=== PATIENT | male | born 1955 | race Caucasian/White ===

== ENCOUNTER 2017-12-01 10:52 | Emergency (ER) | payer OTHER ==
[2017-12-01] MEDS ORDERED: Lactated Ringers 1,000 ML IV ONE (12:29)
[2017-12-01] MEDS ORDERED: HYDROmorphone 1 MG/ML Syringe IVPUSH ONE (12:30)
[2017-12-01] MEDS ORDERED: Metoclopramide 10 MG/2 ML SDV IVPUSH ONE (12:30)
--- NOTE | 2017-12-01 12:34 | EDM.PDOC ---
ED HPI GENERAL MEDICAL PROBLEM - General Chief Complaint: Abdominal Pain Stated Complaint: RIGHT SIDE ABD AND BACK PAIN Time Seen by Provider: 12/01/17 12:20 Source of Information: Reports: Patient, RN History Limitations: Reports: No Limitations - History of Present Illness INITIAL COMMENTS - FREE TEXT/NARRATIVE: 62 yo male here with RLQ abdominal pain that began a couple days ago and was intially associated with diarrhea. Attributed this to amoxicillin he was given for a dental infection so he stopped the med and his sx's actually worsened. Now has continuous RLQ pain and the diarrhea has stopped. Has never had abdominal surgery. Has intermittent nausea without vomiting. No fever. Coughing increases his pain. Is from CT. Does have a hx of abdominal hernias, RLQ and umbilical. Onset: Gradual Onset Date: 11/29/17 Duration: Day(s):, Getting Worse Location: Reports: Abdomen Quality: Reports: Ache, Pressure Severity: Moderate Improves with: Reports: Rest Worsens with: Reports: Movement Context: Reports: Other (still has his appendix) Associated Symptoms: Reports: Nausea/Vomiting (no vomiting). 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: Other (see below) (none) rlq abdomen Pain Score (Numeric/FACES): 5 - Related Data Allergies Allergy/AdvReac Type Severity Reaction Status Date / Time No Known Allergies Allergy Verified 12/01/17 11:51 Home Meds: Home Meds Aspirin 81 mg PO DAILY 12/01/17 [History] Cholecalciferol (Vitamin D3) [Children's Vitamin D3] 1,000 unit PO DAILY [History] atorvaSTATin [Lipitor] 40 mg PO BEDTIME 12/01/17 [History] metFORMIN [Glucophage XR] 1,000 mg PO BIDMEALS 12/01/17 [History] Past Medical History Cardiovascular History: Reports: Heart Murmur, High Cholesterol Endocrine/Metabolic History: Reports: Diabetes, Type II - Past Surgical History Musculoskeletal Surgical History: Reports: Carpal Tunnel, Hip Replacement, Knee Replacement Social & Family History - Tobacco Use Smoking Status *Q: Never Smoker - Recreational Drug Use Recreational Drug Use: No ED ROS GENERAL - Review of Systems Review Of Systems: See Below Constitutional: Reports: No Symptoms HEENT: Reports: No Symptoms Respiratory: Reports: No Symptoms Cardiovascular: Reports: No Symptoms Endocrine: Reports: No Symptoms GI/Abdominal: Reports: Abdominal Pain, Nausea. Denies: Black Stool, Bloody Stool, Constipation, Vomiting : Reports: No Symptoms Musculoskeletal: Reports: No Symptoms Skin: Reports: No Symptoms Neurological: Reports: No Symptoms ED EXAM, GI/ABD - Physical Exam Exam: See Below Exam Limited By: No Limitations General Appearance: Alert, WD/WN, Mild Distress Eyes: Bilateral: Normal Appearance Ears: Normal External Exam, Normal Canal, Hearing Grossly Normal Nose: Normal Inspection, Normal Mucosa, No Blood Throat/Mouth: Normal Inspection, Normal Lips, Normal Oropharynx, Normal Voice, No Airway Compromise Head: Atraumatic, Normocephalic Neck: Normal Inspection Respiratory/Chest: No Respiratory Distress, Lungs Clear, Normal Breath Sounds, No Accessory Muscle Use Cardiovascular: Regular Rate, Rhythm, No Edema GI/Abdominal Exam: No Distention, Guarding (RLQ), Tender, Abnormal Bowel Sounds (decreased) Back Exam: Normal Inspection Extremities: Normal Inspection, Normal Range of Motion, Non-Tender, No Pedal Edema Neurological: Alert, Oriented, CN II-XII Intact, Normal Cognition, No Motor/ Sensory Deficits Psychiatric: Normal Affect, Normal Mood Skin Exam: Warm, Dry, Intact, Normal Color, No Rash Lymphatic: No Adenopathy Course - Vital Signs Text/Narrative:: Pain now gone, feels back to normal. Will ambulate and feed and see how he does with this. After eating and walking pain is minimally still present. Last Recorded V/S: Last Vital Signs Temp 36.1 C 12/01/17 11:53 Pulse 56 L 12/01/17 13:00 Resp 12 12/01/17 13:00 BP 127/62 12/01/17 13:00 Pulse Ox 100 12/01/17 13:00 - Orders/Labs/Meds Orders: Active Orders 24 hr Category Date Time Status UA W/MICROSCOPIC [URIN] Stat Lab 12/01/17 12:26 Ordered Iopamidol [Isovue-300 (61%)] Med 12/01/17 12:52 Active 100 ml IV . DIRECTED PRN Sodium Chloride 0.9% [Normal Saline] 77 ml Med 12/01/17 13:00 Active IV ASDIRECTED Medication Orders Sodium Chloride (Normal Saline) 77 mls @ 3.3 mls/sec IV ASDIRECTED TONYA Last Admin: 12/01/17 13:08 Dose: 3.3 mls/sec Iopamidol (Isovue-300 (61%)) 100 ml IV . DIRECTED PRN PRN Reason: RADIOLOGY EXAM Stop: 12/02/17 12:53 Last Admin: 12/01/17 13:08 Dose: 100 ml Labs: Laboratory Tests 12/01/17 12/01/17 12/01/17 Range/Units 12:26 12:30 12:30 WBC 9.4 (4.5-11.0) K/uL RBC 5.03 (4.30-5.90) M/uL Hgb 15.0 (12.0-15.0) g/dL Hct 45.0 (40.0-54.0) % MCV 90 (80-98) fL MCH 30 (27-31) pg MCHC 33 (32-36) % Plt Count 355 (150-400) K/uL Sodium 136 L (140-148) mmol/L Potassium 3.8 (3.6-5.2) mmol/L Chloride 100 (100-108) mmol/L Carbon Dioxide 26 (21-32) mmol/L Anion Gap 13.8 (5.0-14.0) mmol/L BUN 15 (7-18) mg/dL Creatinine 0.9 (0.8-1.3) mg/dL Est Cr Clr Drug Dosing 87.37 mL/min Estimated GFR (MDRD) > 60 (>60) Glucose 118 H (74-106) mg/dL Calcium 9.3 (8.5-10.1) mg/dL C-Reactive Protein 0.14 (0.0-0.3) mg/dL Urine Color Yellow Urine Appearance Slightly cloudy Urine pH 6.0 (4.5-8.0) Ur Specific [place] 1.015 (1.008-1.030) Urine Protein Trace (NEGATIVE) mg/dL Urine Glucose (UA) Normal (NEGATIVE) mg/dL Urine Ketones Negative (NEGATIVE) mg/dL Urine Occult Blood Negative (NEGATIVE) Urine Nitrite Negative (NEGAITVE) Urine Bilirubin Small (NEGATIVE) Urine Urobilinogen 1 (NORMAL) mg/dL Ur Leukocyte Esterase Negative (NEGATIVE) Urine RBC 0-5 (0-5) Urine WBC Not seen (0-5) Ur Epithelial Cells Not seen Amorphous Sediment Many Urine Bacteria Not seen Urine Mucus Not seen Meds: Medications Generic Name Dose Route Start Last Admin Trade Name Sharon PRN Reason Stop Dose Admin Sodium Chloride 77 mls @ 3.3 mls/sec 12/01/17 13:00 12/01/17 13:08 Normal Saline IV 3.3 mls/sec ASDIRECTED TONYA Administration Iopamidol 100 ml 12/01/17 12:52 12/01/17 13:08 Isovue-300 (61%) IV 12/02/17 12:53 100 ml . DIRECTED PRN Administration RADIOLOGY EXAM Discontinued Medications Generic Name Dose Route Start Last Admin Trade Name Sharon PRN Reason Stop Dose Admin Hydromorphone HCl 1 mg 12/01/17 12:30 12/01/17 12:50 Dilaudid IVPUSH 12/01/17 12:31 1 mg ONETIME ONE Administration Lactated Ringer's 1,000 mls @ 1,000 mls/hr 12/01/17 12:29 12/01/17 13:32 Ringers, Lactated IV 12/01/17 13:28 1,000 mls/hr BOLUS ONE Administration Metoclopramide HCl 10 mg 12/01/17 12:30 12/01/17 12:48 Reglan IVPUSH 12/01/17 12:31 10 mg ONETIME ONE Administration - Radiology Interpretation Free Text/Narrative:: CT abd/pelvis negative CT Results Date: 12/01/17 CT Results Time: 14:00 Departure - Departure Time of Disposition: 14:42 Disposition: Home, Self-Care 01 Condition: Fair Clinical Impression: Nonspecific abdominal pain - Discharge Information *PRESCRIPTION DRUG MONITORING PROGRAM REVIEWED*: Not Applicable *COPY OF PRESCRIPTION DRUG MONITORING REPORT IN PATIENT JOSSIE: Not Applicable Instructions: Abdominal Pain, Adult, [id number] Referrals: PCP,None [Primary Care Provider] - Forms: ED Department Discharge Additional Instructions: Acetaminophen as needed for abdominal pain. Drink ample fluids and get ample fiber in your diet, consider Miralax. F/U in the clinic for recheck soon. Return if worse. - My Orders Last 24 Hours: My Active Orders 12/01/17 12:26 UA W/MICROSCOPIC [URIN] Stat 12/01/17 12:52 Iopamidol [Isovue-300 (61%)] 100 ml IV . DIRECTED PRN 12/01/17 13:00 Sodium Chloride 0.9% [Normal Saline] 77 ml IV ASDIRECTED - Assessment/Plan Last 24 Hours: My Active Orders 12/01/17 12:26 UA W/MICROSCOPIC [URIN] Stat 12/01/17 12:52 Iopamidol [Isovue-300 (61%)] 100 ml IV . DIRECTED PRN 12/01/17 13:00 Sodium Chloride 0.9% [Normal Saline] 77 ml IV ASDIRECTED
[2017-12-01] MEDS ORDERED: Iopamidol 612 MG/ML 100 ML Bottle IV PRN (12:52)
--- NOTE | 2017-12-01 14:09 | CT ---
Abdomen Pelvis w Cont CLINICAL HISTORY: Right lower quadrant pain COMPARISON: None TECHNIQUE: Multiple contiguous axial sections were obtained from the level of the lung bases down thr ough the pelvis with the IV infusion of iodinated contrast. Oral contrast was not administered. . Aut o dosage reduction and iterative reconstruction techniques employed. FINDINGS: The lung bases are clear. The liver is free of mass or biliary dilatation. The gallbladder has a normal Contour. The spleen contains multiple granulomata. The pancreas is free of mass or inflammatory ge e. No adrenal masses are identified. The kidneys are free of mass, stones or hydronephrosis. Ureters have a normal course and contour. The abdominal pelvic fat planes and low pelvic side armendariz are well demarcated is seen. There is some moderate streak artifact the from hip prostheses. The visualized bl adder has a normal contour. The there is a small right inguinal hernia containing mesenteric fat. The appendix is not the definitively identified. There is moderate retained stool throughout the colon. The aorta is free of aneurysm. No suspicious adenopathy is identified. IMPRESSION: No mass, adenopathy or inflammatory change Moderate retained stool throughout the colon
== END 2017-12-01 14:51 | disposition home or self-care (01) ==
LOC: JP.ED 10:52
DX: R10.31 Right lower quadrant pain (principal); Z79.82 Long term (current) use of aspirin
CPT/HCPCS: 36415; 74177; 80048; 81001; 85027; 86140; 96361; 96374; 96375; 99284; J1170; J2765; J7030; J7120; Q9967